=== PATIENT | male | born 1960 | race Caucasian/White ===

== ENCOUNTER → 2017-01-05 | Outpatient (CLI) | payer OTHER ==
[2017-01-05 12:05] LABS: LYMPH # 2.6 K/mm3 (0.7-4.5); LYMPH % 25.2 % (10-50)
[2017-01-05 13:13] LABS: BUN 9 mg/dL (7-18)
[2017-01-05 13:17] LABS: GFR (ESTIMATED) 99 ML/MIN (>60)
[2017-01-06 08:42] LABS: Vitamin D, 25-Hydroxy 23.4 ng/mL (30.0-100.0)
== END ==
LOC: LAB 11:40
PROVIDERS: Nurse Practitioner Family
DX: Z00.00 Encounter for general adult medical examination without abnormal findings (principal); R53.83 Other fatigue; E55.9 Vitamin D deficiency, unspecified